=== PATIENT | female | born 1960 | race Caucasian/White ===

== ENCOUNTER 2018-05-26 08:54 | Emergency (ER) | payer BC, OTHER ==
[2018-05-26] MEDS: Albuterol/Ipratropium 3.0-0.5 MG/3 ML Neb Soln NEB ONE (09:00)
--- NOTE | 2018-05-26 09:16 | EDM.PDOC ---
ED HPI GENERAL MEDICAL PROBLEM - General Chief Complaint: Respiratory Problem Stated Complaint: cough Time Seen by Provider: 05/26/18 09:05 Source of Information: Reports: Patient History Limitations: Reports: No Limitations - History of Present Illness INITIAL COMMENTS - FREE TEXT/NARRATIVE: Patient comes in the emergency department with complaint of severe cough. Patient states she was in the clinic approximately 3-4 days ago. She was prescribed doxycycline her 100mg daily, prednisone 20 mg daily, and a cough syrup agent. She has not noticed feeling any better since her antibiotics have started. She states that she is actually getting worse. She was diagnosed with a sinusitis. Over the course of last 24 hours she's noticed that her chest has become "tight" she's got increased amount of cough, shortness of breath with exertion, she can hear wheezing. She denies any fever nausea, vomiting, chest pain at rest, or changes in vision. Chest denies any body aches or headaches. Onset: Gradual Improves with: Reports: None Worsens with: Reports: None Associated Symptoms: Reports: No Other Symptoms Middle Back Pain Score (Numeric/FACES): 3 - Related Data Allergies Allergy/AdvReac Type Severity Reaction Status Date / Time cephalexin [From Keflex] Allergy Cannot Verified 05/26/18 09:06 Remember Home Meds: Home Meds Albuterol Sulfate [Albuterol Sulfate Hfa] 18 gm IH Q4H PRN 5 Days hfa.aer.ad [Rx] Amoxicillin/Clavulanate K [Augmentin 875-125 MG] 1 tab PO BID 10 Days #20 tablet 05/26/18 [Rx] Benzonatate 100 mg Q4H PRN 05/26/18 [History] Doxycycline Hyclate 100 mg BID 05/26/18 [History] predniSONE 20 mg DAILY 05/26/18 [History] ED ROS GENERAL - Review of Systems Review Of Systems: See Below Constitutional: Reports: No Symptoms HEENT: Reports: No Symptoms Respiratory: Reports: Shortness of Breath, Wheezing, Pleuritic Chest Pain, Cough , Sputum Cardiovascular: Reports: No Symptoms Endocrine: Reports: No Symptoms GI/Abdominal: Reports: No Symptoms : Reports: No Symptoms Musculoskeletal: Reports: No Symptoms Skin: Reports: No Symptoms Neurological: Reports: No Symptoms Psychiatric: Reports: No Symptoms Hematologic/Lymphatic: Reports: No Symptoms Immunologic: Reports: No Symptoms ED EXAM, GENERAL - Physical Exam Exam: See Below Exam Limited By: No Limitations General Appearance: Alert, WD/WN, No Apparent Distress Ears: Normal External Exam, Normal Canal, Hearing Grossly Normal, Normal TMs Ear Exam: Bilateral Ear: Auricle Normal, Canal Normal, TM normal Nose: Normal Inspection, Normal Mucosa, No Blood Throat/Mouth: Normal Inspection, Normal Lips, Normal Teeth, Normal Gums Head: Atraumatic, Normocephalic Respiratory/Chest: Respiratory Distress, Rales, Wheezing, Prolonged Expiration Cardiovascular: Normal Peripheral Pulses, Regular Rate, Rhythm, No Edema GI/Abdominal: Normal Bowel Sounds, Soft, Non-Tender, No Distention Back Exam: Normal Inspection, Full Range of Motion Extremities: Normal Inspection, Normal Range of Motion, Normal Capillary Refill Neurological: Alert, Oriented Psychiatric: Normal Affect, Normal Mood Skin Exam: Warm, Dry, Intact, Normal Color Course - Vital Signs Last Recorded V/S: Last Vital Signs Temp 36.6 C 05/26/18 08:57 Pulse 90 05/26/18 08:57 Resp 24 H 05/26/18 08:57 BP 134/74 05/26/18 08:57 Pulse Ox 89 L 05/26/18 08:57 - Orders/Labs/Meds Orders: Active Orders 24 hr Category Date Time Status EKG Documentation Completion [RC] STAT Care 05/26/18 09:12 Active RT Aerosol Therapy [RC] ASDIRECTED Care 05/26/18 09:06 Active Labs: Laboratory Tests 05/26/18 05/26/18 05/26/18 Range/Units 09:19 09:19 09:19 WBC 6.0 (4.0-10.0) x10^3/uL RBC 4.29 (4.00-5.50) x10^6/uL Hgb 13.3 D (12.0-16.0) g/dL Hct 40.7 (33.0-47.0) % MCV 94.9 H (78.0-93.0) fL MCH 31.0 (26.0-32.0) pg MCHC 32.7 (32.0-36.0) g/dL RDW Coeff of Joaquim 12.0 (10.0-15.0) % Plt Count 242 (130-400) x10^3/uL Neut % (Auto) 58.8 (50.0-80.0) % Lymph % (Auto) 25.0 (25.0-50.0) % [place] % (Auto) 14.9 H (2.0-11.0) % Eos % (Auto) 1.0 (0.0-4.0) % Baso % (Auto) 0.3 (0.2-1.2) % Sodium 143 (136-145) mmol/L Potassium 3.8 (3.5-5.1) mmol/L Chloride 104 (98-107) mmol/L Carbon Dioxide 29 (21-32) mmol/L Anion Gap 13.8 (10-20) mmol/L BUN 20 H D (7-18) mg/dL Creatinine 0.7 (0.55-1.02) mg/dL Est Cr Clr Drug Dosing 85.01 mL/min Estimated GFR (MDRD) > 60 Glucose 101 (74-106) mg/dL Lactic Acid 1.7 (0.4-2.0) mmol/L Calcium 9.1 (8.5-10.1) mg/dL Corrected Calcium 9.34 (8.5-10.1) mg/dL Total Bilirubin 0.4 (0.2-1.0) mg/dL AST 26 (15-37) U/L ALT 27 (14-59) U/L Alkaline Phosphatase 78 (46-116) U/L Total Protein 7.5 (6.4-8.2) g/dL Albumin 3.7 (3.4-5.0) g/dL Globulin 3.8 Albumin/Globulin Ratio 0.97 Meds: Medications Discontinued Medications Generic Name Dose Route Start Last Admin Trade Name Freq PRN Reason Stop Dose Admin Albuterol/Ipratropium 3 ml 05/26/18 09:06 05/26/18 09:00 Duoneb 3.0-0.5 Mg/3 Ml NEB 05/26/18 09:07 3 ml ONETIME ONE Administration Departure - Departure Time of Disposition: 10:30 Disposition: Home, Self-Care 01 Condition: Good Clinical Impression: Acute bronchiolitis Qualifiers: Bronchiolitis organism: unspecified organism Qualified Code(s): J21.9 - Acute bronchiolitis, unspecified Sinusitis Qualifiers: Sinusitis location: frontal Chronicity: acute Recurrence: recurrent Qualified Code(s): J01.11 - Acute recurrent frontal sinusitis - Discharge Information *PRESCRIPTION DRUG MONITORING PROGRAM REVIEWED*: No *COPY OF PRESCRIPTION DRUG MONITORING REPORT IN PATIENT CHAYA: No Prescriptions: Albuterol Sulfate [Albuterol Sulfate Hfa] 18 gm IH Q4H PRN 5 Days hfa.aer.ad PRN Reason: Cough Amoxicillin/Clavulanate K [Augmentin 875-125 MG] 1 tab PO BID 10 Days #20 tablet Instructions: Sinusitis, Adult, [id number], Bronchospasm, Adult, [id number] , Acute Bronchitis, Adult, [id number] Forms: ED Department Discharge Additional Instructions: 1. rest 2. increase water intake 3. Can take inhaler as needed every 4 hours for shortness of breath 4. Discontinue the doxycycline and start a 10 day course of Augmentin 5. Take a probiotic to promote healthy GI 6. Take your prednisone BID 20mg in the am and 20mg in the pm 7. Follow up with PCP next week if not better or getting worse 8. Call with any questions or concerns - Problem List Review Problem List Initiated/Reviewed/Updated: Yes - My Orders Last 24 Hours: My Active Orders 05/26/18 09:06 RT Aerosol Therapy [RC] ASDIRECTED 05/26/18 09:12 EKG Documentation Completion [RC] STAT - Assessment/Plan Last 24 Hours: My Active Orders 05/26/18 09:06 RT Aerosol Therapy [RC] ASDIRECTED 05/26/18 09:12 EKG Documentation Completion [RC] STAT Assessment:: 1. Cough 2. wheezing Plan: 1. Labs completed in ER 2. Duoneb completed in ER 3. X-ray completed in ER 4. pt will be switched from doxycycline to Augmentin for better coverage 5. Patient is advised to take her prednisone 20 mg morning and 20 mg at night until gone. She was provided this in the clinic. 6. Patient is also given a prescription for albuterol inhaler to help with the shortness of breath and cough. 7. Patient is encouraged follow-up with her PCP next week if not better or if symptoms worsen
[2018-05-26 09:45] LABS: CHLORIDE,CL 104 mmol/L (98-107); SODIUM,NA 143 mmol/L (136-145)
[2018-05-26 09:46] LABS: ANION GAP 13.8 mmol/L (10-20)
--- NOTE | 2018-05-26 10:10 | CR ---
[id number] RAD/RAD Chest PA And Lateral EXAM: FRONTAL AND LATERAL CHEST INDICATION: Cough and shortness of breath. COMPARISON: None. DISCUSSION: Hyperinflation is consistent with chronic obstructive pulmonary disease. There is mild cardiomegaly with borderline central vascular congestion. No focal infiltrates are identified. IMPRESSION: 1. Cardiomegaly with mild central vascular congestion. 2. No infiltrates are identified. Valentin Cloud MD 05/26/18 1009 Thank you for allowing us to participate in the care of your patient.
== END 2018-05-26 10:30 | disposition home or self-care (01) ==
LOC: VM.ED 08:54
DX: J21.9 Acute bronchiolitis, unspecified (principal); J01.11 Acute recurrent frontal sinusitis; Z79.899 Other long term (current) drug therapy; Z88.1 Allergy status to other antibiotic agents
CPT/HCPCS: 36415; 71046; 80053; 83605; 85025; 93005; 94640; 99285-25; J7620-GY

== ENCOUNTER 2021-01-22 09:01 | Emergency (ER) | payer OTHER ==
[2021-01-22] MEDS ORDERED: Sodium Chloride 0.9% 10 ML Syringe FLUSH PRN (09:14)
[2021-01-22] MEDS ORDERED: HYDROmorphone 1 MG/ML Syringe IVPUSH ONE (09:16)
[2021-01-22] MEDS ORDERED: Ketorolac 15 MG/ML SDV IVPUSH ONE (09:16)
[2021-01-22] MEDS ORDERED: Ondansetron 4 MG/2 ML SDV IVPUSH ONE (09:16)
--- NOTE | 2021-01-22 09:52 | EDM.PDOC ---
ED HPI GENERAL MEDICAL PROBLEM - General Chief Complaint: General Stated Complaint: POSSIBLE KIDNEY STONES Time Seen by Provider: 01/22/21 09:15 Source of Information: Reports: Patient History Limitations: Reports: No Limitations - History of Present Illness INITIAL COMMENTS - FREE TEXT/NARRATIVE: Pt. presents to ER with complaints of severe, acute onset of L lower back/flank pain. Pt. states that it started at about 0630 this AM. She states that the discomfort was very rapid onset. Denies any dysuria. No hematuria. Denies ever having discomfort like this in the past. Pt. states that she is nausea and has been vomiting. Denies any fever or chills. No diarrhea. No bloody stools. Denies any chest pain or shortness of breath. 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 - Related Data Allergies Allergy/AdvReac Type Severity Reaction Status Date / Time cephalexin [From Keflex] Allergy Rash Verified 01/22/21 09:18 sulfamethoxazole Allergy Rash Verified 01/22/21 09:18 [From Bactrim] trimethoprim [From Bactrim] Allergy Rash Verified 01/22/21 09:18 Home Meds: Home Meds Albuterol Sulfate [Albuterol Sulfate Hfa] 18 gm IH Q4H PRN 5 Days hfa.aer.ad 05/26/18 [Rx] Amoxicillin/Clavulanate K [Augmentin 875-125 MG] 1 tab PO BID 10 Days #20 tablet 05/26/18 [Rx] Benzonatate 100 mg Q4H PRN 05/26/18 [History] Doxycycline Hyclate 100 mg BID 05/26/18 [History] predniSONE 20 mg DAILY 05/26/18 [History] Past Medical History - Past Surgical History GI Surgical History: Reports: Appendectomy, Other (See Below) Other GI Surgeries/Procedures: sigmoidoscopy. colectomy Female Surgical History: Reports: Hysterectomy ED ROS GENERAL - Review of Systems Review Of Systems: See Below Constitutional: Reports: No Symptoms HEENT: Reports: No Symptoms Respiratory: Reports: No Symptoms Cardiovascular: Reports: No Symptoms Endocrine: Reports: No Symptoms GI/Abdominal: Reports: No Symptoms. Denies: Abdominal Pain, Black Stool, Bloody Stool, Constipation, Diarrhea, Hematochezia, Melena : Reports: Flank Pain Musculoskeletal: Reports: Back Pain Skin: Reports: No Symptoms Neurological: Reports: No Symptoms Psychiatric: Reports: No Symptoms Hematologic/Lymphatic: Reports: No Symptoms Immunologic: Reports: No Symptoms ED EXAM, GENERAL - Physical Exam Exam: See Below Exam Limited By: No Limitations General Appearance: Alert, WD/WN, No Apparent Distress GI/Abdominal: Soft, Non-Tender, No Organomegaly, No Distention, No Mass (Female) Exam: Deferred Rectal (Female) Exam: Deferred Back Exam: CVA Tenderness (R) Extremities: Normal Inspection, Normal Range of Motion, No Pedal Edema, Normal Capillary Refill Neurological: Alert, Oriented, CN II-XII Intact, Normal Cognition, Normal Gait, Normal Reflexes, No Motor/Sensory Deficits Psychiatric: Normal Affect, Normal Mood Skin Exam: Warm, Dry, Intact, Normal Color, No Rash Course - Vital Signs Last Recorded V/S: Last Vital Signs Temp 35.9 C L 01/22/21 09:01 Pulse 66 01/22/21 09:01 Resp 24 H 01/22/21 09:01 BP 152/78 H 01/22/21 09:01 Pulse Ox 97 01/22/21 09:01 - Orders/Labs/Meds Orders: Active Orders 24 hr Category Date Time Status Sodium Chloride 0.9% [Normal Saline] 1,000 ml Med 01/22/21 10:00 Active IV ASDIRECTED Sodium Chloride 0.9% [Saline Flush] Med 01/22/21 09:14 Active 10 ml FLUSH ASDIRECTED PRN Peripheral IV Insertion Adult [OM.PC] Routine Oth 01/22/21 09:15 Ordered Medication Orders Sodium Chloride (Normal Saline) 1,000 mls @ 1,000 mls/hr IV ASDIRECTED GIANNA Last Admin: 01/22/21 10:00 Dose: 1,000 mls/hr Documented by: WILLIAM Sodium Chloride (Sodium Chloride 0.9% 10 Ml Syringe) 10 ml FLUSH ASDIRECTED PRN PRN Reason: Keep Vein Open Labs: Laboratory Tests 01/22/21 01/22/21 01/22/21 Range/Units 09:25 09:25 09:25 WBC 9.4 (4.0-10.0) x10^3/uL RBC 4.54 (4.00-5.50) x10^6/uL Hgb 14.0 (12.0-16.0) g/dL Hct 41.4 (33.0-47.0) % MCV 91.2 (78.0-93.0) fL MCH 30.8 (26.0-32.0) pg MCHC 33.8 (32.0-36.0) g/dL RDW Coeff of Joaquim 11.5 (10.0-15.0) % Plt Count 259 (130-400) x10^3/uL Immature Gran % (Auto) 0.70 H (0.00-0.43) % Neut % (Auto) 72.7 (50.0-80.0) % Lymph % (Auto) 19.0 L (25.0-50.0) % [place] % (Auto) 6.9 (2.0-11.0) % Eos % (Auto) 0.4 (0.0-4.0) % Baso % (Auto) 0.3 (0.2-1.2) % Neut # (Auto) 6.8 (1.8-7.7) x10^3/uL Lymph # (Auto) 1.8 (1.0-4.8) x10^3/uL [place] # (Auto) 0.7 (0.0-0.8) x10^3/uL Eos # (Auto) 0.0 (0.0-0.5) x10^3/uL Baso # (Auto) 0.0 (0.0-0.2) x10^3/uL Immature Gran # (Auto) 0.07 (0.00-0.07) x10^3/uL PT 10.4 (9.9-12.5) SEC INR 0.9 L (2.0-3.5) APTT (25.6-32.8) SEC Sodium 144 (136-145) mmol/L Potassium 4.0 (3.5-5.1) mmol/L Chloride 105 (98-107) mmol/L Carbon Dioxide 24 (21-32) mmol/L Anion Gap 19.0 H (5-15) mmol/L BUN 20 H (7-18) mg/dL Creatinine 1.1 H (0.55-1.02) mg/dL Est Cr Clr Drug Dosing TNP Estimated GFR (MDRD) 51 Glucose 148 H (70-99) mg/dL Calcium 9.4 (8.5-10.1) mg/dL Corrected Calcium 9.3 (8.5-10.1) mg/dL Phosphorus 3.9 (2.6-4.7) mg/dL Magnesium 2.0 (1.8-2.4) mg/dL Total Bilirubin 0.3 (0.2-1.0) mg/dL AST 17 (15-37) U/L ALT 23 (14-59) U/L Alkaline Phosphatase 85 (46-116) U/L C-Reactive Protein 0.7 (<=0.9) mg/dL Total Protein 7.5 (6.4-8.2) g/dL Albumin 4.1 (3.4-5.0) g/dL Globulin 3.4 Albumin/Globulin Ratio 1.21 Urine Color (YELLOW) Urine Appearance (CLEAR) Urine pH (5.0-8.0) Ur Specific [place] Urine Protein (NEGATIVE) mg/dL Urine Glucose (UA) (NEGATIVE) mg/dL Urine Ketones (NEGATIVE) mg/dL Urine Occult Blood (NEGATIVE) Urine Nitrite (NEGATIVE) Urine Bilirubin (NEGATIVE) Urine Urobilinogen (0.2) EU/dL Ur Leukocyte Esterase (NEGATIVE) 01/22/21 01/22/21 Range/Units 09:25 09:30 WBC (4.0-10.0) x10^3/uL RBC (4.00-5.50) x10^6/uL Hgb (12.0-16.0) g/dL Hct (33.0-47.0) % MCV (78.0-93.0) fL MCH (26.0-32.0) pg MCHC (32.0-36.0) g/dL RDW Coeff of Joaquim (10.0-15.0) % Plt Count (130-400) x10^3/uL Immature Gran % (Auto) (0.00-0.43) % Neut % (Auto) (50.0-80.0) % Lymph % (Auto) (25.0-50.0) % [place] % (Auto) (2.0-11.0) % Eos % (Auto) (0.0-4.0) % Baso % (Auto) (0.2-1.2) % Neut # (Auto) (1.8-7.7) x10^3/uL Lymph # (Auto) (1.0-4.8) x10^3/uL [place] # (Auto) (0.0-0.8) x10^3/uL Eos # (Auto) (0.0-0.5) x10^3/uL Baso # (Auto) (0.0-0.2) x10^3/uL Immature Gran # (Auto) (0.00-0.07) x10^3/uL PT (9.9-12.5) SEC INR (2.0-3.5) APTT 23.4 L (25.6-32.8) SEC Sodium (136-145) mmol/L Potassium (3.5-5.1) mmol/L Chloride (98-107) mmol/L Carbon Dioxide (21-32) mmol/L Anion Gap (5-15) mmol/L BUN (7-18) mg/dL Creatinine (0.55-1.02) mg/dL Est Cr Clr Drug Dosing Estimated GFR (MDRD) Glucose (70-99) mg/dL Calcium (8.5-10.1) mg/dL Corrected Calcium (8.5-10.1) mg/dL Phosphorus (2.6-4.7) mg/dL Magnesium (1.8-2.4) mg/dL Total Bilirubin (0.2-1.0) mg/dL AST (15-37) U/L ALT (14-59) U/L Alkaline Phosphatase (46-116) U/L C-Reactive Protein (<=0.9) mg/dL Total Protein (6.4-8.2) g/dL Albumin (3.4-5.0) g/dL Globulin Albumin/Globulin Ratio Urine Color Yellow (YELLOW) Urine Appearance Clear (CLEAR) Urine pH 5.0 (5.0-8.0) Ur Specific [place] >=1.030 Urine Protein Negative (NEGATIVE) mg/dL Urine Glucose (UA) Negative (NEGATIVE) mg/dL Urine Ketones Negative (NEGATIVE) mg/dL Urine Occult Blood Negative (NEGATIVE) Urine Nitrite Negative (NEGATIVE) Urine Bilirubin Negative (NEGATIVE) Urine Urobilinogen 0.2 (0.2) EU/dL Ur Leukocyte Esterase Negative (NEGATIVE) Meds: Medications Generic Name Dose Route Start Last Admin Trade Name Radha PRN Reason Stop Dose Admin Sodium Chloride 1,000 mls @ 1,000 mls/hr 01/22/21 10:00 01/22/21 10:00 Normal Saline IV 1,000 mls/hr ASDIRECTED GIANNA Administration Sodium Chloride 10 ml 01/22/21 09:14 Sodium Chloride 0.9% 10 Ml Syringe FLUSH ASDIRECTED PRN Keep Vein Open Discontinued Medications Generic Name Dose Route Start Last Admin Trade Name Radha PRN Reason Stop Dose Admin Hydromorphone HCl 1 mg 01/22/21 09:16 01/22/21 09:26 Hydromorphone 1 Mg/Ml Syringe IVPUSH 01/22/21 09:17 1 mg ONETIME ONE Administration Iopamidol 75 ml 01/22/21 10:48 01/22/21 10:53 Iopamidol 612 Mg/Ml 100 Ml Bottle IVPUSH 01/22/21 10:49 75 ml ONETIME ONE Administration Ketorolac Tromethamine 15 mg 01/22/21 09:16 01/22/21 09:24 Ketorolac 15 Mg/Ml Sdv IVPUSH 01/22/21 09:17 15 mg ONETIME ONE Administration Ondansetron HCl 4 mg 01/22/21 09:16 01/22/21 09:22 Ondansetron 4 Mg/2 Ml Sdv IVPUSH 01/22/21 09:17 4 mg ONETIME ONE Administration - Radiology Interpretation Free Text/Narrative:: CT abd/pelvis with and without contrast obtained. Several small stones in both kidneys. Cholelithiasis without evidence or cholecystitis. - Re-Assessments/Exams Free Text/Narrative Re-Assessment/Exam: Pain controlled with IV dilaudid and toradol. Pt. was given a liter of normal saline IV. She reported feeling much improved. Departure - Departure Time of Disposition: 12:35 Disposition: Home, Self-Care 01 Clinical Impression: Nephrolithiasis - Discharge Information Instructions: Acetaminophen; Hydrocodone tablets or capsules, Kidney Stones, Okkl-am-Exes, Tamsulosin capsules Referrals: Collette Jo PA-C [Primary Care Provider] - Forms: ED Department Discharge Additional Instructions: Home to rest. Flomax 0.4mg 1 tab daily Ibuprofen 200mg 3 tabs every 6 hours as needed for pain Lortab 1 tab every 4-6 hours as needed for pain Drink plenty of fluids Strain urine, collect stones and bring to clinic for analysis. Sepsis Event Note (ED) - Focused Exam Vital Signs: Vital Signs Temp Pulse Resp BP Pulse Ox 01/22/21 09:01 35.9 C L 66 24 H 152/78 H 97 - My Orders Last 24 Hours: My Active Orders 01/22/21 09:14 Sodium Chloride 0.9% [Saline Flush] 10 ml FLUSH ASDIRECTED PRN 01/22/21 09:15 Peripheral IV Insertion Adult [OM.PC] Routine 01/22/21 10:00 Sodium Chloride 0.9% [Normal Saline] 1,000 ml IV ASDIRECTED - Assessment/Plan Last 24 Hours: My Active Orders 01/22/21 09:14 Sodium Chloride 0.9% [Saline Flush] 10 ml FLUSH ASDIRECTED PRN 01/22/21 09:15 Peripheral IV Insertion Adult [OM.PC] Routine 01/22/21 10:00 Sodium Chloride 0.9% [Normal Saline] 1,000 ml IV ASDIRECTED Plan: Home to rest. Flomax 0.4mg 1 tab daily Ibuprofen 200mg 3 tabs every 6 hours as needed for pain Lortab 1 tab every 4-6 hours as needed for pain Drink plenty of fluids Strain urine, collect stones and bring to clinic for analysis.
[2021-01-22 09:57] LABS: CHLORIDE,CL 105 mmol/L (98-107); SODIUM,NA 144 mmol/L (136-145)
[2021-01-22] MEDS ORDERED: Sodium Chloride 0.9% 1,000 ML IV SCH (10:00)
[2021-01-22] MEDS ORDERED: Iopamidol 612 MG/ML 100 ML Bottle IVPUSH ONE (10:48)
--- NOTE | 2021-01-22 11:30 | CT ---
[id number] CT/CT Abdomen Pelvis WWO IV EXAM: CT Abdomen Pelvis WWO IV INDICATION: SEVERE RIGHT FLANK PAIN. COMPARISON: None. DISCUSSION: There are few tiny nonobstructing intrarenal calculi bilaterally. No ureteral calculus. There are a couple of subcentimeter hypodensities in the kidneys are likely cysts, but are too small to further characterize. Emphysematous changes in the lung bases. Borderline cardiomegaly. Hysterectomy. Small bilateral adrenal adenomata the largest on the right measuring up to 16 x [address] evidence of acute cholecystitis. Mild hepatic steatosis. Numerous pancreatic calcifications compatible with chronic pancreatitis. No acute inflammatory changes. Subcentimeter hypodensities in the left lobe of the liver are too small to further characterize. Resection of the proximal colon and appendix is suggested, correlate with surgical history. The spleen and small bowel are normal in appearance. Scattered degenerative changes in the spine. The osseous structures are otherwise unremarkable. IMPRESSION: 1. There are tiny nonobstructing intrarenal calculi. No hydronephrosis or ureteral calculi. 2. Cholelithiasis without CT evidence of acute cholecystitis. Valentin Cloud MD 01/22/21 [id number] Thank you for allowing us to participate in the care of your patient.
== END 2021-01-22 12:01 | disposition home or self-care (01) ==
LOC: VM.ED 09:01
DX: N20.0 Calculus of kidney (principal); Z88.1 Allergy status to other antibiotic agents
CPT/HCPCS: 36415; 74178; 80053; 81003; 83735; 84100; 85025; 85610; 85730; 86140; 96374; 96375; 99284-25; J1170; J1885; J2405; J7030; Q9967

== ENCOUNTER 2025-01-17 18:09 | Emergency (ER) | payer OTHER ==
[2025-01-17] MEDS ORDERED: Sodium Chloride 0.9% 10 ML Syringe FLUSH PRN (18:24)
[2025-01-17 18:33] LABS: BASOPHILS ABSOLUTE AUTO 0.0 x10^3/uL (0.0-0.2); BASOPHILS PERCENT AUTO 0.3 % (0.2-1.2); EOSINOPHILS ABSOLUTE AUTO 0.1 x10^3/uL (0.0-0.5); EOSINOPHILS PERCENT AUTO 0.7 % (0.0-4.0); IMMATURE GRAN ABSOLUTE AUTO 0.03 x10^3/uL (0.00-0.07); IMMATURE GRAN PERCENT AUTO 0.30 % (0.00-0.43); LYMPHOCYTES ABSOLUTE AUTO 2.4 x10^3/uL (1.0-4.8); LYMPHOCYTES PERCENT AUTO 21.8 % (25.0-50.0); MONOCYTES ABSOLUTE AUTO 0.9 x10^3/uL (0.0-0.8); MONOCYTES PERCENT AUTO 8.4 % (2.0-11.0); NEUTROPHILS ABSOLUTE AUTO 7.6 x10^3/uL (1.8-7.7); NEUTROPHILS PERCENT AUTO 68.5 % (50.0-80.0); PLATELET COUNT,PLT 327 x10^3/uL (130-400); RED BLOOD CELL COUNT 5.41 x10^6/uL (4.00-5.50); WHITE BLOOD CELL COUNT,WBC 11.0 x10^3/uL (4.0-10.0)
[2025-01-17] MEDS: Ondansetron 4 MG/2 ML SDV IVPUSH ONE (18:34)
[2025-01-17 18:54] LABS: A/G RATIO 1.00; ALANINE AMINOTRANSFERASE,ALT 21 U/L (14-59); ASPARTATE AMNIOTRANSFERASE,AST 24 U/L (15-37); BILIRUBIN TOTAL 0.8 mg/dL (0.2-1.0); BLOOD UREA NITROGEN,BUN 37 mg/dL (7-18); CARBON DIOXIDE,CO2 20 mmol/L (21-32); CHLORIDE,CL 100 mmol/L (98-107); CREATININE 1.3 mg/dL (0.55-1.02); ESTIMATED GFR 46 mL/min (>=60); GLUCOSE RANDOM 148 mg/dL (70-99); POTASSIUM,K 4.1 mmol/L (3.5-5.1); PROTEIN TOTAL,TP 9.2 g/dL (6.4-8.2); SODIUM,NA 136 mmol/L (136-145)
[2025-01-17] MEDS: Take Home: Ondansetron 4 MG Tab.DIS, 5 Tab Pack PO ONE (20:00)
== END 2025-01-17 20:04 | disposition home or self-care (01) ==
LOC: VM.ED 18:09
DX: R11.2 Nausea with vomiting, unspecified (principal); E86.0 Dehydration; Z88.8 Allergy status to other drugs, medicaments and biological substances; Z79.899 Other long term (current) drug therapy; Z90.49 Acquired absence of other specified parts of digestive tract; Z90.710 Acquired absence of both cervix and uterus
CPT/HCPCS: 80053; 83735; 85025; 96361; 96374; 99284; J2405; J7030; Q0162